=== PATIENT | male | born 1980 | race Caucasian/White ===

== ENCOUNTER 2017-10-07 14:09 | Emergency (ER) | payer OTHER ==
[~2017-10-07] VITALS: Ht 190.5 cm; Wt 79.5 kg
[2017-10-07 15:05] VITALS: BP 145/82
== END 2017-10-07 15:36 | disposition home or self-care (01) ==
LOC: EMS 14:11 → EDBD 14:11 → EMS 15:36
DX: F41.9 Anxiety disorder, unspecified (principal); F42.9 Obsessive-compulsive disorder, unspecified; F17.210 Nicotine dependence, cigarettes, uncomplicated; Z76.0 Encounter for issue of repeat prescription
CPT/HCPCS: 99284

== ENCOUNTER 2017-11-13 19:19 | Inpatient (IN) | payer MEDICAID, OTHER ==
[~2017-11-13] VITALS: Ht 182.9 cm; Wt 91.6 kg
[2017-11-13] MEDS ORDERED: RISP.5 PO (19:37)
[2017-11-13 19:51] LABS: BASOPHILS % (AUTO) 0.4 % (0.0-2.0); EOSINOPHILS % (AUTO) 0.9 % (1.0-6.0); HEMATOCRIT 46.3 % (41-53); HEMOGLOBIN 16.1 g/dL (13.5-17.5); LYMPHOCYTES # (AUTO) 2.1 K/uL (1.0-4.8); LYMPHOCYTES % (AUTO) 29.2 % (22.0-44.0); MEAN CORPUSCULAR HEMOGLOBIN 30.8 pg (26.0-34.0); MEAN CORPUSCULAR HGB CONC 34.8 G/dL (31.0-37.0); MEAN CORPUSCULAR VOLUME 88 fL (80-100); MONOCYTES # (AUTO) 0.5 K/uL (0.1-1.0); MONOCYTES % (AUTO) 7.5 % (2.0-9.0); NEUTROPHILS # (AUTO) 4.4 K/uL (1.8-7.7); PLATELET COUNT (AUTO) 269 K/uL (150-450); RED BLOOD CELL COUNT(AUTO) 5.24 MIL/uL (4.50-5.90); RED CELL DISTRIBUTION WIDTH 12.7 % (11.5-14.5)
[2017-11-13 20:01] LABS: ANION GAP 9 mmol/L (8-16); CALCIUM, TOTAL 9.1 mg/dL (8.8-10.5); CARBON DIOXIDE 31 mmol/L (22-29); CHLORIDE 97 mmol/L (98-107); CREATININE 0.98 mg/dL (0.60-1.30); GLOMERULAR FILTR. RATE CALC > 60 mL/min (>60); GLUCOSE,RANDOM 99 mg/dL (70-110); POTASSIUM 4.3 mmol/L (3.5-5.1); SODIUM SERUM 137 mmol/L (136-145); UREA NITROGEN, BLOOD 9 mg/dL (7-18)
[2017-11-13 20:07] LABS: ALANINE AMINOTRANSFERASE 27 U/L (12-78); ALBUMIN 4.4 g/dL (3.4-5.0); ALKALINE PHOSPHATASE 84 U/L (46-116); ASPARTATE AMINOTRANSFERASE 28 U/L (15-37); BILIRUBIN,TOTAL 0.3 mg/dL (0.1-1.0); TOTAL PROTEIN, SERUM 8.8 g/dL (6.4-8.2)
[2017-11-13] MEDS ORDERED: LORazepam 2 MG/ML VIAL IM ONE (21:45)
[2017-11-13] MEDS ORDERED: OLANZapine 5 MG RAPDIS TABLET PO PRN (23:00)
[2017-11-14 01:13] VITALS: BP 110/68
[2017-11-14] MEDS ORDERED: INFLUENZA VIRUS VACCINE QVS 2017-18 (3YR+)/PF 60 MCG/0.5 ML SYRINGE IM ONE (02:30)
[2017-11-14 08:39] VITALS: BP 126/78
[2017-11-14] MEDS: LORazepam 2 MG TABLET PO PRN (09:47)
[2017-11-14] MEDS ORDERED: GuaiFENesin/D-METHORPHAN [SUGAR-FREE] 200-20MG/10 ML SYRUP UDCUP PO PRN (16:15)
[2017-11-14] MEDS ORDERED: MAGNESIUM HYDROXIDE SUSPENSION 30 ML UDCUP PO PRN (16:15)
[2017-11-14] MEDS ORDERED: ACETAMINOPHEN 325 MG TABLET PO PRN (16:15)
[2017-11-14] MEDS ORDERED: PROMETHAZINE HCL 25 MG TABLET PO PRN (16:15)
[2017-11-14] MEDS ORDERED: HydrOXYzine PAMOATE 50 MG CAPSULE PO PRN (16:15)
[2017-11-14] MEDS ORDERED: LOPERAMIDE HCL 2 MG CAPSULE PO PRN (16:15)
[2017-11-14] MEDS ORDERED: TUBERCULIN, PURIFIED PROTEIN DERIVATIVE 5 TU/0.1 ML SYG ID ONE (16:15)
[2017-11-14 17:43] VITALS: BP 106/64
[2017-11-14] MEDS: THIAMINE HCL 100 MG TABLET PO SCH (17:55)
[2017-11-14] MEDS ORDERED: OLANZapine 5 MG RAPDIS TABLET PO SCH (21:00)
[2017-11-14] MEDS: ZOLPIDEM TARTRATE 10 MG TABLET PO PRN (21:45)
[2017-11-15 05:35] VITALS: BP 120/80
[2017-11-15 08:17] VITALS: BP 119/58
[2017-11-15] MEDS: NALTREXONE HCL 50 MG TABLET PO SCH (08:50)
[2017-11-15] MEDS: THIAMINE HCL 100 MG TABLET PO SCH ×2 (08:50→16:31)
[2017-11-15] MEDS: MULTIVITAMINS WITH MINERALS, THERAPEUTIC TABLET PO SCH (08:50)
[2017-11-15] MEDS: FOLIC ACID 1 MG TABLET PO SCH (08:50)
[2017-11-15] MEDS: LORazepam 2 MG TABLET PO PRN ×2 (08:50→16:32)
[2017-11-15] MEDS: METHADONE HCL 10 MG TABLET PO SCH (10:02)
[2017-11-15 12:09] VITALS: BP 129/79
[2017-11-15 16:09] VITALS: BP 119/80
[2017-11-15] MEDS: OLANZapine 10 MG RAPDIS TABLET PO SCH (20:32)
[2017-11-15] MEDS: ZOLPIDEM TARTRATE 10 MG TABLET PO PRN (21:54)
[2017-11-16 05:00] VITALS: BP 122/68
[2017-11-16] MEDS: FOLIC ACID 1 MG TABLET PO SCH (08:35)
[2017-11-16] MEDS: NALTREXONE HCL 50 MG TABLET PO SCH (08:35)
[2017-11-16] MEDS: MULTIVITAMINS WITH MINERALS, THERAPEUTIC TABLET PO SCH (08:35)
[2017-11-16] MEDS: THIAMINE HCL 100 MG TABLET PO SCH ×2 (08:35→17:00)
[2017-11-16] MEDS: METHADONE HCL 10 MG TABLET PO SCH (08:35)
[2017-11-16 08:36] LABS: CHOL/HDL RATIO 3.3 (4.2-7.3); FREE T4 (FREE THYROXINE) 0.92 ng/dL (0.76-1.46); THYROID STIMULATING HORMONE 0.96 uIU/mL (0.36-3.74)
[2017-11-16] MEDS: LORazepam 2 MG TABLET PO PRN (09:02)
[2017-11-16] MEDS ORDERED: DiphenhydrAMINE HCL 25 MG CAPSULE PO ONE (10:00)
[2017-11-16 10:14] VITALS: BP 122/73
[2017-11-16] MEDS ORDERED: HydrOXYzine PAMOATE 50 MG CAPSULE PO PRN (10:30)
[2017-11-16] MEDS ORDERED: CloNIDine HCL 0.1 MG TABLET PO PRN (10:30)
[2017-11-16] MEDS ORDERED: PROMETHAZINE HCL 25 MG/ML VIAL IM PRN (10:30)
[2017-11-16] MEDS ORDERED: IBUPROFEN 600 MG TABLET PO PRN (10:30)
[2017-11-16] MEDS ORDERED: MAG HYDROX/AL HYDROX/SIMETH ES 30 ML SUSPENSION UDCUP PO PRN (10:30)
[2017-11-16 11:00] VITALS: BP 137/82
[2017-11-16] MEDS ORDERED: DiphenhydrAMINE HCL 50 MG/ML VIAL IM ONE (11:15)
[2017-11-16 12:00] VITALS: BP 142/90
[2017-11-16] MEDS: CloNIDine HCL 0.1 MG TABLET PO SCH ×3 (12:41→22:00)
[2017-11-16] MEDS: ACAMPROSATE CALCIUM 333 MG DR TABLET PO SCH ×2 (12:41→17:00)
[2017-11-16 13:04] VITALS: BP 121/65
[2017-11-16] MEDS: MAG HYDROX/AL HYDROX/SIMETH ES 30 ML SUSPENSION UDCUP PO PRN ×2 (13:09→19:40)
[2017-11-16 19:40] VITALS: BP 122/74
[2017-11-16] MEDS ORDERED: METHADONE HCL 10 MG TABLET PO PRN (20:00)
[2017-11-16] MEDS: OLANZapine 10 MG RAPDIS TABLET PO SCH (21:00)
[2017-11-17] VITALS (8 sets, daily range): BP systolic 106–128; BP diastolic 60–90
[2017-11-17] MEDS: LORazepam 2 MG TABLET PO PRN ×4 (04:31→21:12)
[2017-11-17] MEDS: MAG HYDROX/AL HYDROX/SIMETH ES 30 ML SUSPENSION UDCUP PO PRN (04:32)
[2017-11-17] MEDS: CloNIDine HCL 0.1 MG TABLET PO SCH ×4 (06:00→22:00)
[2017-11-17] MEDS: ACAMPROSATE CALCIUM 333 MG DR TABLET PO SCH ×3 (09:00→17:00)
[2017-11-17] MEDS: FOLIC ACID 1 MG TABLET PO SCH (09:00)
[2017-11-17] MEDS: MULTIVITAMINS WITH MINERALS, THERAPEUTIC TABLET PO SCH (09:00)
[2017-11-17] MEDS: THIAMINE HCL 100 MG TABLET PO SCH ×2 (09:00→17:00)
[2017-11-17] MEDS: METHADONE HCL 10 MG TABLET PO SCH (09:35)
[2017-11-17] MEDS: OMEPRAZOLE 20 MG CAPSULE PO SCH (14:14)
[2017-11-17] MEDS: ChlorproMAZINE HCL 50 MG TABLET PO SCH (21:09)
[2017-11-18 06:00] VITALS: BP 124/74
[2017-11-18] MEDS: CloNIDine HCL 0.1 MG TABLET PO SCH ×4 (06:00→22:00)
[2017-11-18] MEDS: METHADONE HCL 10 MG TABLET PO SCH (07:58)
[2017-11-18] MEDS: OMEPRAZOLE 20 MG CAPSULE PO SCH (08:00)
[2017-11-18] MEDS: ACAMPROSATE CALCIUM 333 MG DR TABLET PO SCH ×3 (08:09→17:00)
[2017-11-18] MEDS: FOLIC ACID 1 MG TABLET PO SCH (08:09)
[2017-11-18] MEDS: THIAMINE HCL 100 MG TABLET PO SCH ×2 (08:09→16:41)
[2017-11-18] MEDS: MULTIVITAMINS WITH MINERALS, THERAPEUTIC TABLET PO SCH (08:09)
[2017-11-18 08:51] VITALS: BP 119/98
[2017-11-18 08:52] VITALS: BP 119/77
[2017-11-18] MEDS: LORazepam 2 MG TABLET PO PRN ×4 (09:03→22:16)
[2017-11-18] MEDS: BuPROPion HCL XL 150 MG ER TABLET PO SCH (09:31)
[2017-11-18 16:20] VITALS: BP 128/77
[2017-11-18] MEDS: ChlorproMAZINE HCL 50 MG TABLET PO SCH (20:01)
[2017-11-19 02:21] VITALS: BP 117/76
[2017-11-19] MEDS: LORazepam 2 MG TABLET PO PRN ×3 (04:01→15:50)
[2017-11-19 06:22] VITALS: BP 125/76
[2017-11-19 06:36] VITALS: BP 125/76
[2017-11-19] MEDS: CloNIDine HCL 0.1 MG TABLET PO SCH ×4 (06:39→21:05)
[2017-11-19 08:00] VITALS: BP 144/78
[2017-11-19 08:31] VITALS: BP 144/78
[2017-11-19] MEDS: METHADONE HCL 10 MG TABLET PO SCH (08:50)
[2017-11-19] MEDS: ACAMPROSATE CALCIUM 333 MG DR TABLET PO SCH ×4 (08:50→16:24)
[2017-11-19] MEDS: FOLIC ACID 1 MG TABLET PO SCH (08:51)
[2017-11-19] MEDS: MULTIVITAMINS WITH MINERALS, THERAPEUTIC TABLET PO SCH ×2 (08:51→11:00)
[2017-11-19] MEDS: THIAMINE HCL 100 MG TABLET PO SCH ×2 (08:52→16:24)
[2017-11-19] MEDS: BuPROPion HCL XL 150 MG ER TABLET PO SCH (08:52)
[2017-11-19] MEDS: OMEPRAZOLE 20 MG CAPSULE PO SCH (08:52)
[2017-11-19] MEDS ORDERED: ChlorproMAZINE HCL 100 MG TABLET PO PRN (09:30)
[2017-11-19 16:00] VITALS: BP 118/78
[2017-11-19] MEDS ORDERED: ChlorproMAZINE HCL 100 MG TABLET PO SCH (21:00)
[2017-11-20 00:01] VITALS: BP 120/81
[2017-11-20] MEDS: LORazepam 2 MG TABLET PO PRN ×4 (00:03→21:14)
[2017-11-20] MEDS: CloNIDine HCL 0.1 MG TABLET PO SCH ×4 (06:27→22:00)
[2017-11-20] MEDS: METHADONE HCL 10 MG TABLET PO SCH (07:50)
[2017-11-20] MEDS: OMEPRAZOLE 20 MG CAPSULE PO SCH (07:50)
[2017-11-20] MEDS: MULTIVITAMINS WITH MINERALS, THERAPEUTIC TABLET PO SCH (07:54)
[2017-11-20] MEDS: ACAMPROSATE CALCIUM 333 MG DR TABLET PO SCH ×3 (07:54→17:00)
[2017-11-20] MEDS: THIAMINE HCL 100 MG TABLET PO SCH ×2 (07:54→17:00)
[2017-11-20] MEDS: FOLIC ACID 1 MG TABLET PO SCH (07:54)
[2017-11-20 08:15] VITALS: BP 124/60
[2017-11-20] MEDS ORDERED: LamoTRIgine 25 MG TABLET PO SCH (09:00)
[2017-11-20] MEDS ORDERED: BuPROPion HCL XL 150 MG ER TABLET PO ONE (14:30)
[2017-11-20] MEDS ORDERED: RisperiDONE 1 MG TABLET PO PRN (14:30)
[2017-11-20 16:07] VITALS: BP 113/75
[2017-11-20] MEDS ORDERED: RisperiDONE 3 MG TABLET PO SCH (21:00)
[2017-11-20] MEDS: MIRTAZAPINE 15 MG TABLET PO SCH (21:14)
[2017-11-21 00:54] VITALS: BP 116/92
[2017-11-21] MEDS: CloNIDine HCL 0.1 MG TABLET PO SCH ×4 (06:00→22:21)
[2017-11-21] MEDS: METHADONE HCL 10 MG TABLET PO SCH (07:52)
[2017-11-21] MEDS: FOLIC ACID 1 MG TABLET PO SCH (07:53)
[2017-11-21] MEDS: OMEPRAZOLE 20 MG CAPSULE PO SCH (07:53)
[2017-11-21] MEDS: THIAMINE HCL 100 MG TABLET PO SCH ×2 (07:54→16:54)
[2017-11-21] MEDS: MULTIVITAMINS WITH MINERALS, THERAPEUTIC TABLET PO SCH (07:55)
[2017-11-21] MEDS: ACAMPROSATE CALCIUM 333 MG DR TABLET PO SCH ×3 (07:55→16:55)
[2017-11-21 08:19] VITALS: BP 114/70
[2017-11-21] MEDS ORDERED: BuPROPion HCL XL 150 MG ER TABLET PO SCH (09:00)
[2017-11-21] MEDS: LORazepam 2 MG TABLET PO PRN ×3 (10:00→20:10)
[2017-11-21 16:01] VITALS: BP 118/72
[2017-11-21] MEDS: GABAPENTIN 400 MG CAPSULE PO SCH (16:54)
[2017-11-21] MEDS: RisperiDONE 3 MG TABLET PO SCH (20:09)
[2017-11-21] MEDS: MIRTAZAPINE 15 MG TABLET PO SCH (20:09)
[2017-11-22] MEDS: CloNIDine HCL 0.1 MG TABLET PO SCH ×4 (06:00→22:00)
[2017-11-22 06:25] VITALS: BP 120/81
[2017-11-22 08:09] VITALS: BP 121/90
[2017-11-22] MEDS: GABAPENTIN 400 MG CAPSULE PO SCH (08:50)
[2017-11-22] MEDS: THIAMINE HCL 100 MG TABLET PO SCH ×2 (08:51→17:00)
[2017-11-22] MEDS: FOLIC ACID 1 MG TABLET PO SCH (08:51)
[2017-11-22] MEDS: BuPROPion HCL XL 150 MG ER TABLET PO SCH (08:51)
[2017-11-22] MEDS: OMEPRAZOLE 20 MG CAPSULE PO SCH (08:51)
[2017-11-22] MEDS: METHADONE HCL 10 MG TABLET PO SCH (08:51)
[2017-11-22] MEDS: MULTIVITAMINS WITH MINERALS, THERAPEUTIC TABLET PO SCH (08:55)
[2017-11-22] MEDS: ACAMPROSATE CALCIUM 333 MG DR TABLET PO SCH ×3 (08:55→17:00)
[2017-11-22 10:50] VITALS: BP 121/79
[2017-11-22] MEDS: LORazepam 2 MG TABLET PO PRN ×3 (10:58→18:58)
[2017-11-22] MEDS ORDERED: ACAM333T7 PO (11:43)
[2017-11-22] MEDS ORDERED: BUPR-47 PO (11:43)
[2017-11-22] MEDS ORDERED: GABA-533 PO (11:43)
[2017-11-22] MEDS ORDERED: RISP3 PO (11:43)
[2017-11-22] MEDS ORDERED: MIRT15 PO (11:43)
[2017-11-22] MEDS ORDERED: GABAPENTIN 400 MG CAPSULE PO SCH (13:00)
[2017-11-22] MEDS: GABAPENTIN 300 MG CAPSULE PO SCH ×2 (13:47→16:48)
[2017-11-22 16:06] VITALS: BP 122/77
[2017-11-22] MEDS: RisperiDONE 3 MG TABLET PO SCH (20:03)
[2017-11-22] MEDS: MIRTAZAPINE 15 MG TABLET PO SCH (20:11)
[2017-11-23 06:28] VITALS: BP 127/79
[2017-11-23] MEDS: CloNIDine HCL 0.1 MG TABLET PO SCH ×2 (06:29→12:00)
[2017-11-23] MEDS: LORazepam 2 MG TABLET PO PRN ×2 (06:51→12:08)
[2017-11-23 06:54] VITALS: BP 117/62
[2017-11-23] MEDS: OMEPRAZOLE 20 MG CAPSULE PO SCH (08:05)
[2017-11-23] MEDS: BuPROPion HCL XL 150 MG ER TABLET PO SCH (08:05)
[2017-11-23] MEDS: GABAPENTIN 300 MG CAPSULE PO SCH ×2 (08:05→12:08)
[2017-11-23] MEDS: FOLIC ACID 1 MG TABLET PO SCH (08:05)
[2017-11-23] MEDS: THIAMINE HCL 100 MG TABLET PO SCH (08:06)
[2017-11-23] MEDS: METHADONE HCL 10 MG TABLET PO SCH (08:06)
[2017-11-23 08:17] VITALS: BP 125/88
[2017-11-23] MEDS ORDERED: ACAM333T7 PO (08:21)
[2017-11-23] MEDS ORDERED: GABA-531 PO (08:23)
[2017-11-23] MEDS ORDERED: METH10SO PO (08:23)
[2017-11-23] MEDS ORDERED: BUPR-93 PO (08:24)
[2017-11-23] MEDS ORDERED: MIRT15 PO (08:24)
[2017-11-23] MEDS ORDERED: RISP3 PO (08:25)
[2017-11-23] MEDS ORDERED: CLON-570 PO (08:25)
[2017-11-23] MEDS ORDERED: OMEP20 PO (08:25)
[2017-11-23] MEDS: ACAMPROSATE CALCIUM 333 MG DR TABLET PO SCH ×2 (09:00→12:09)
[2017-11-23] MEDS: MULTIVITAMINS WITH MINERALS, THERAPEUTIC TABLET PO SCH (09:00)
== END 2017-11-23 12:50 | disposition home or self-care (01) | DRG 750 ==
LOC: EMS 19:20 → B2S 23:00
PROVIDERS: ADMIT Psychiatry & Neurology Psychiatry; ATTEND Psychiatry & Neurology Psychiatry
DX: F20.0 Paranoid schizophrenia (principal); R45.851 Suicidal ideations; Z91.19 Patient's noncompliance with other medical treatment and regimen; F11.23 Opioid dependence with withdrawal; F41.9 Anxiety disorder, unspecified; T40.2X5A Adverse effect of other opioids, initial encounter; F17.210 Nicotine dependence, cigarettes, uncomplicated; F10.20 Alcohol dependence, uncomplicated; F15.90 Other stimulant use, unspecified, uncomplicated; Z65.3 Problems related to other legal circumstances; Z88.8 Allergy status to other drugs, medicaments and biological substances; Z79.899 Other long term (current) drug therapy
CPT/HCPCS: 84439; 84443; 96372; 99285; G0480; J1200; J2060; J2550; J3230

== ENCOUNTER 2017-11-16 13:41 | Emergency (ER) | payer MEDICAID, OTHER ==
[~2017-11-16] VITALS: Ht 188 cm; Wt 86.4 kg
[~2017-11-16 13:41] MED LIST: RISP.5 PO
[2017-11-16] MEDS ORDERED: PROMETHAZINE HCL 50 MG/ML VIAL IM ONE (15:30)
[2017-11-16] MEDS ORDERED: DIPHENOXYLATE/ATROP 2.5-0.025 MG TABLET PO ONE (15:30)
[2017-11-16] MEDS: ACETAMINOPHEN 500 MG TABLET PO ONE ×2 (15:41→15:45)
[2017-11-16] MEDS ORDERED: DiphenhydrAMINE HCL 25 MG CAPSULE PO ONE (16:00)
[2017-11-16 16:06] LABS: BASOPHILS % (AUTO) 0.2 % (0.0-2.0); EOSINOPHILS % (AUTO) 0.1 % (1.0-6.0); HEMATOCRIT 46.1 % (41-53); HEMOGLOBIN 16.2 g/dL (13.5-17.5); LYMPHOCYTES # (AUTO) 0.5 K/uL (1.0-4.8); LYMPHOCYTES % (AUTO) 4.5 % (22.0-44.0); MEAN CORPUSCULAR HEMOGLOBIN 30.8 pg (26.0-34.0); MEAN CORPUSCULAR VOLUME 88 fL (80-100); MONOCYTES # (AUTO) 0.2 K/uL (0.1-1.0); NEUTROPHILS # (AUTO) 9.7 K/uL (1.8-7.7); PLATELET COUNT (AUTO) 250 K/uL (150-450); RED BLOOD CELL COUNT(AUTO) 5.24 MIL/uL (4.50-5.90); RED CELL DISTRIBUTION WIDTH 12.5 % (11.5-14.5)
[2017-11-16 16:13] LABS: NEUTROPHILS % (AUTO) 93.2 % (40.0-70.0)
[2017-11-16 16:19] LABS: ANION GAP 11 mmol/L (8-16); CALCIUM, TOTAL 9.7 mg/dL (8.8-10.5); CARBON DIOXIDE 29 mmol/L (22-29); CHLORIDE 97 mmol/L (98-107); CREATININE 0.85 mg/dL (0.60-1.30); GLOMERULAR FILTR. RATE CALC > 60 mL/min (>60); GLUCOSE,RANDOM 129 mg/dL (70-110); POTASSIUM 3.9 mmol/L (3.5-5.1); SODIUM SERUM 137 mmol/L (136-145); UREA NITROGEN, BLOOD 17 mg/dL (7-18)
[2017-11-16 16:25] LABS: ALANINE AMINOTRANSFERASE 34 U/L (12-78); ALBUMIN 4.4 g/dL (3.4-5.0); ALKALINE PHOSPHATASE 75 U/L (46-116); ASPARTATE AMINOTRANSFERASE 59 U/L (15-37); BILIRUBIN,TOTAL 0.5 mg/dL (0.1-1.0); TOTAL PROTEIN, SERUM 8.6 g/dL (6.4-8.2)
[2017-11-16] MEDS ORDERED: DiphenhydrAMINE HCL 50 MG/ML VIAL IM ONE (17:00)
[2017-11-16] MEDS ORDERED: MAG HYDROX/AL HYDROX/SIMETH ES 30 ML SUSPENSION UDCUP PO ONE (17:30)
[2017-11-16 18:35] VITALS: BP 142/74
== END 2017-11-16 18:00 | disposition home or self-care (01) ==
LOC: EMS 13:42
DX: K52.9 Noninfective gastroenteritis and colitis, unspecified (principal); F17.210 Nicotine dependence, cigarettes, uncomplicated; F19.90 Other psychoactive substance use, unspecified, uncomplicated; Z88.8 Allergy status to other drugs, medicaments and biological substances
CPT/HCPCS: 36415; 80053; 85025; 96372; 99284; J1200; J2550